=== PATIENT | male | born 1980 | race Caucasian/White ===

== ENCOUNTER 2021-03-11 20:56 | Emergency (ER) | payer OTHER ==
[2021-03-11 23:00] LABS: CORONAVIRUS 2019 SARS-COV-2 NEGATIVE (NEGATIVE); INFLUENZA A NAA NEGATIVE (NEGATIVE)
== END 2021-03-11 22:33 | disposition home or self-care (01) ==
LOC: FER 20:56
PROVIDERS: Emergency Medicine
DX: M79.10 Myalgia, unspecified site (principal); I10 Essential (primary) hypertension; E11.9 Type 2 diabetes mellitus without complications; F17.200 Nicotine dependence, unspecified, uncomplicated; Z91.041 Radiographic dye allergy status; Z79.84 Long term (current) use of oral hypoglycemic drugs; Z79.899 Other long term (current) drug therapy; Z20.822 Contact with and (suspected) exposure to COVID-19
CPT/HCPCS: 71045; 73620; J2543; J3370; J7030; J7050; U0002